=== PATIENT | male | born 1965 | race Caucasian/White ===

== ENCOUNTER 2020-10-27 22:31 | Inpatient (IN) | payer MEDICARE, OTHER ==
[~2020-10-27] VITALS: Ht 177.8 cm; Wt 92.3 kg
[~2020-10-27 22:31] MED LIST: AMOXICILLIN500 MG PO; ATIVAN1 MG PO; CIPRO500 MG PO; CLARITIN-D 12 H1 TAB PO; CLARITIN10 MG PO; FLONASE0.05 MG/AC NS; Fioricet 325 MG1 TAB PO; LEVOFLOXACIN500 MG PO; MOTRIN800 MG PO; TRAMADOL HCL50 MG PO; VICODIN 5/500 505 MG PO; VICODIN 500 MG-1 TAB PO
[2020-10-27 22:44] VITALS: BP 189/100
[2020-10-27 23:12] LABS: BASO % 0.5 % (0.0-1.0); EOS # 0.2 10*3/uL (0.0-0.4); EOS % 2.6 % (1.0-4.0); HEMATOCRIT 47.4 % (42.0-52.0); LYMPH # 2.3 10*3/uL (1.3-4.4); MEAN CELL VOLUME 86.3 fl (80.0-94.0); MEAN CORPUSCULAR HGB 28.6 pg (27.0-31.0); MEAN CORPUSCULAR HGB CONC 33.1 g/dl (33.0-37.0); MEAN PLATELET VOLUME 9.1 fl (9.6-12.3); MONO # 0.5 10*3/uL (0.1-1.0); MONO % 6.3 % (3.0-9.0); NEUT # 5.4 10*3/uL (2.3-7.9); NEUT % 63.2 % (47.0-73.0); PLATELET COUNT AUTOMATED 242 10*3/uL (130-400); RED BLOOD COUNT 5.49 10*6/uL (4.50-5.90); RED CELL DISTRI WIDTH 12.8 % (0-14.5); WHITE BLOOD COUNT 8.5 10*3/uL (4.8-10.8)
[2020-10-27 23:33] LABS: ALBUMIN 2.9 gm/dl (3.1-4.5); ALKALINE PHOSPHATASE 115 U/L (45-117); BUN 19 mg/dl (7-24); CHLORIDE 101 mmol/L (98-107); CREATININE 1.25 mg/dL (0.70-1.30); POTASSIUM 3.7 mmol/L (3.5-5.1); SGOT/AST 12 IU/L (3-35); SGPT/ALT 21 U/L (12-78); SODIUM 134 mmol/L (136-145); TOTAL PROTEIN 8.3 gm/dL (6.4-8.2)
[2020-10-28] VITALS (11 sets, daily range): BP systolic 97–159; BP diastolic 44–107
[2020-10-28 05:59] LABS: BASO % 0.5 % (0.0-1.0); EOS % 0.3 % (1.0-4.0); HEMATOCRIT 47.7 % (42.0-52.0); LYMPH # 1.5 10*3/uL (1.3-4.4); LYMPH % 18.1 % (27.0-41.0); MEAN CELL VOLUME 86.3 fl (80.0-94.0); MEAN CORPUSCULAR HGB 28.8 pg (27.0-31.0); MEAN CORPUSCULAR HGB CONC 33.3 g/dl (33.0-37.0); MEAN PLATELET VOLUME 9.7 fl (9.6-12.3); MONO # 0.2 10*3/uL (0.1-1.0); MONO % 2.3 % (3.0-9.0); NEUT # 6.3 10*3/uL (2.3-7.9); NEUT % 78.4 % (47.0-73.0); PLATELET COUNT AUTOMATED 254 10*3/uL (130-400); RED BLOOD COUNT 5.53 10*6/uL (4.50-5.90); RED CELL DISTRI WIDTH 12.9 % (0-14.5)
[2020-10-28 06:01] LABS: ALBUMIN 2.8 gm/dl (3.1-4.5); ALKALINE PHOSPHATASE 109 U/L (45-117); BUN 18 mg/dl (7-24); CHLORIDE 103 mmol/L (98-107); CHOLESTEROL 173 mg/dL (<200); CPK 24 U/L (39-308); CREATININE 1.05 mg/dL (0.70-1.30); HDL CHOLESTEROL 37 mg/dl (40-60); LDH 185 U/L (87-241); LDL CHOLESTEROL 97 mg/dL (9-159); POTASSIUM 4.5 mmol/L (3.5-5.1); SGOT/AST 15 IU/L (3-35); SGPT/ALT 19 U/L (12-78); SODIUM 133 mmol/L (136-145); TOTAL PROTEIN 8.1 gm/dL (6.4-8.2); TRIGLYCERIDES 195 mg/dl (<150); VLDL CHOLESTEROL 39 mg/dL (6-40)
[2020-10-28 06:07] LABS: THYROID STIM HORMONE (HS) 0.661 uIU/ml (0.358-4.75)
[2020-10-28 06:26] LABS: TROPONIN I 0.338 ng/ml (<0.045)
[2020-10-28 07:01] LABS: FERRITIN 943.4 ng/mL (22.0-322.0); VITAMIN D, 25-HYDROXY 16.8 ng/mL (30-100)
[2020-10-28 09:36] LABS: ABG BASE EXCESS 0.6 mmol/L (-2.0-2.0); ARTERIAL BLOOD GAS PH 7.436 (7.35-7.45)
[2020-10-29 01:00] VITALS: BP 150/92
[2020-10-29 06:21] LABS: BASO % 0.3 % (0.0-1.0); EOS # 0.1 10*3/uL (0.0-0.4); EOS % 0.9 % (1.0-4.0); HEMATOCRIT 44.3 % (42.0-52.0); LYMPH # 2.9 10*3/uL (1.3-4.4); LYMPH % 29.8 % (27.0-41.0); MEAN CELL VOLUME 88.8 fl (80.0-94.0); MEAN CORPUSCULAR HGB 28.9 pg (27.0-31.0); MEAN CORPUSCULAR HGB CONC 32.5 g/dl (33.0-37.0); MEAN PLATELET VOLUME 9.5 fl (9.6-12.3); MONO # 0.7 10*3/uL (0.1-1.0); MONO % 6.8 % (3.0-9.0); NEUT # 6.1 10*3/uL (2.3-7.9); NEUT % 61.8 % (47.0-73.0); PLATELET COUNT AUTOMATED 237 10*3/uL (130-400); RED BLOOD COUNT 4.99 10*6/uL (4.50-5.90); RED CELL DISTRI WIDTH 13.3 % (0-14.5); WHITE BLOOD COUNT 9.8 10*3/uL (4.8-10.8)
[2020-10-29 06:44] LABS: ALBUMIN 2.9 gm/dl (3.1-4.5); ALKALINE PHOSPHATASE 92 U/L (45-117); BUN 25 mg/dl (7-24); CHLORIDE 104 mmol/L (98-107); CPK 20 U/L (39-308); CREATININE 1.18 mg/dL (0.70-1.30); LDH 176 U/L (87-241); SGOT/AST 12 IU/L (3-35); SGPT/ALT 19 U/L (12-78); SODIUM 138 mmol/L (136-145); TOTAL PROTEIN 7.4 gm/dL (6.4-8.2)
[2020-10-29 07:52] LABS: ABG BASE EXCESS 1.5 mmol/L (-2.0-2.0); ARTERIAL BLOOD GAS PH 7.417 (7.35-7.45)
[2020-10-29 08:00] VITALS: BP 152/82
[2020-10-29 12:00] VITALS: BP 140/64
[2020-10-29 16:00] VITALS: BP 149/86
[2020-10-29 20:00] VITALS: BP 115/73
[2020-10-30] VITALS: BP 113/73
[2020-10-30 06:16] LABS: BASO % 0.3 % (0.0-1.0); EOS # 0.1 10*3/uL (0.0-0.4); EOS % 0.6 % (1.0-4.0); HEMATOCRIT 43.9 % (42.0-52.0); LYMPH # 3.3 10*3/uL (1.3-4.4); LYMPH % 32.7 % (27.0-41.0); MEAN CELL VOLUME 88.7 fl (80.0-94.0); MEAN CORPUSCULAR HGB 28.7 pg (27.0-31.0); MEAN CORPUSCULAR HGB CONC 32.3 g/dl (33.0-37.0); MEAN PLATELET VOLUME 9.3 fl (9.6-12.3); MONO # 0.6 10*3/uL (0.1-1.0); MONO % 5.8 % (3.0-9.0); NEUT # 6.1 10*3/uL (2.3-7.9); NEUT % 60.3 % (47.0-73.0); PLATELET COUNT AUTOMATED 250 10*3/uL (130-400); RED BLOOD COUNT 4.95 10*6/uL (4.50-5.90); RED CELL DISTRI WIDTH 13.1 % (0-14.5); WHITE BLOOD COUNT 10.1 10*3/uL (4.8-10.8)
[2020-10-30 06:21] LABS: ALBUMIN 2.9 gm/dl (3.1-4.5); BUN 26 mg/dl (7-24); CHLORIDE 100 mmol/L (98-107); CREATININE 1.14 mg/dL (0.70-1.30); LDH 183 U/L (87-241); POTASSIUM 3.8 mmol/L (3.5-5.1); SGOT/AST 16 IU/L (3-35); SGPT/ALT 22 U/L (12-78); SODIUM 136 mmol/L (136-145); TOTAL PROTEIN 7.7 gm/dL (6.4-8.2)
[2020-10-30 06:22] LABS: ALKALINE PHOSPHATASE 92 U/L (45-117); CPK 17 U/L (39-308)
[2020-10-30 07:56] LABS: ABG BASE EXCESS 4.5 mmol/L (-2.0-2.0); ARTERIAL BLOOD GAS PH 7.475 (7.35-7.45)
[2020-10-30 08:00] VITALS: BP 128/82
[2020-10-30] MEDS ORDERED: DOXYCYCLINE100 M3 PO (09:56)
== END 2020-10-30 10:30 | disposition left against medical advice (07) | DRG 871 ==
LOC: ED 22:31 → 4E 10-28 00:11 → EDHOLD 10-28 00:11 → 4E 10-28 21:20
PROVIDERS: Internal Medicine; Internal Medicine Critical Care Medicine; Student in an Organized Health Care Education/Training Program; ADMIT Emergency Medicine; ATTEND Emergency Medicine
DX: A41.89 Other specified sepsis (principal); J96.01 Acute respiratory failure with hypoxia; J18.1 Lobar pneumonia, unspecified organism; I21.4 Non-ST elevation (NSTEMI) myocardial infarction; I16.1 Hypertensive emergency; E44.0 Moderate protein-calorie malnutrition; E87.1 Hypo-osmolality and hyponatremia; D68.59 Other primary thrombophilia; B97.89 Other viral agents as the cause of diseases classified elsewhere; R65.20 Severe sepsis without septic shock; E78.5 Hyperlipidemia, unspecified; E55.9 Vitamin D deficiency, unspecified; F32.9 Major depressive disorder, single episode, unspecified; F20.9 Schizophrenia, unspecified; E88.09 Other disorders of plasma-protein metabolism, not elsewhere classified; R79.89 Other specified abnormal findings of blood chemistry; F17.210 Nicotine dependence, cigarettes, uncomplicated; F41.1 Generalized anxiety disorder; Z53.29 Procedure and treatment not carried out because of patient's decision for other reasons; E11.65 Type 2 diabetes mellitus with hyperglycemia; I10 Essential (primary) hypertension; I25.10 Atherosclerotic heart disease of native coronary artery without angina pectoris; Z20.828 Contact with and (suspected) exposure to other viral communicable diseases; E66.9 Obesity, unspecified; Z71.6 Tobacco abuse counseling; Z79.4 Long term (current) use of insulin; Z88.8 Allergy status to other drugs, medicaments and biological substances; Z91.018 Allergy to other foods; Z82.49 Family history of ischemic heart disease and other diseases of the circulatory system; Z80.8 Family history of malignant neoplasm of other organs or systems; Z90.49 Acquired absence of other specified parts of digestive tract; Z95.5 Presence of coronary angioplasty implant and graft; I25.2 Old myocardial infarction; Z91.14 Patient's other noncompliance with medication regimen; Z68.21 Body mass index [BMI] 21.0-21.9, adult

== ENCOUNTER 2021-01-05 01:27 | Emergency (ER) | payer MEDICARE, OTHER ==
[~2021-01-05] VITALS: Ht 182.8 cm; Wt 103.6 kg
[~2021-01-05 01:27] MED LIST changes: +DOXYCYCLINE100 M3 PO
[2021-01-05 02:08] LABS: BASO # 0.1 10*3/uL (0.0-0.1); BASO % 0.4 % (0.0-1.0); EOS # 0.1 10*3/uL (0.0-0.4); EOS % 0.7 % (1.0-4.0); HEMATOCRIT 48.5 % (42.0-52.0); LYMPH # 3.1 10*3/uL (1.3-4.4); LYMPH % 25.9 % (27.0-41.0); MEAN CELL VOLUME 88.2 fl (80.0-94.0); MEAN CORPUSCULAR HGB 29.8 pg (27.0-31.0); MEAN CORPUSCULAR HGB CONC 33.8 g/dl (33.0-37.0); MONO # 0.8 10*3/uL (0.1-1.0); MONO % 6.7 % (3.0-9.0); NEUT # 7.9 10*3/uL (2.3-7.9); NEUT % 66.1 % (47.0-73.0); PLATELET COUNT AUTOMATED 181 10*3/uL (130-400)
[2021-01-05 02:25] LABS: ALBUMIN 3.8 gm/dl (3.1-4.5); ALKALINE PHOSPHATASE 104 U/L (45-117); BUN 13 mg/dl (7-24); CHLORIDE 102 mmol/L (98-107); CPK 63 U/L (39-308); CREATININE 1.12 mg/dL (0.70-1.30); POTASSIUM 3.3 mmol/L (3.5-5.1); SGOT/AST 19 IU/L (3-35); SGPT/ALT 24 U/L (12-78); SODIUM 135 mmol/L (136-145); TOTAL PROTEIN 8.1 gm/dL (6.4-8.2)
[2021-01-05 02:27] LABS: CKMB 1.2 ng/ml (0.5-3.6)
[2021-01-05 02:29] LABS: TROPONIN I 0.295 ng/ml (<0.045)
[2021-01-05 02:31] LABS: ACT PARTIAL THROMBO TIME 25.8 SECONDS (20.0-32.1)
[2021-01-05 02:47] LABS: BILIRUBIN Negative (Negative); BLOOD 1+ (Negative); CLARITY Clear (Clear); COLOR Yellow (Yellow); GLUCOSE Negative (Negative); KETONE 1+ (Negative); LEUKO ESTERASE Negative (Negative); NITRITE Negative (Negative); SPECIFIC GRAVITY 1.015 (1.001-1.030)
[2021-01-05 03:02] LABS: EPITHELIAL CELLS 0-2
[2021-01-05 03:03] LABS: BACTERIA 1+; HYALINE CAST 0-2
[2021-01-05 06:38] VITALS: BP 126/58
== END 2021-01-05 10:18 | disposition left against medical advice (07) ==
LOC: ED 01:27
PROVIDERS: Emergency Medicine
DX: R47.1 Dysarthria and anarthria (principal); R29.810 Facial weakness; R74.8 Abnormal levels of other serum enzymes; E11.9 Type 2 diabetes mellitus without complications; I10 Essential (primary) hypertension; I25.2 Old myocardial infarction; F32.9 Major depressive disorder, single episode, unspecified; F41.9 Anxiety disorder, unspecified; F20.9 Schizophrenia, unspecified; J44.9 Chronic obstructive pulmonary disease, unspecified; E78.00 Pure hypercholesterolemia, unspecified; F17.200 Nicotine dependence, unspecified, uncomplicated; Z88.8 Allergy status to other drugs, medicaments and biological substances; Z91.018 Allergy to other foods; Z79.2 Long term (current) use of antibiotics; Z95.5 Presence of coronary angioplasty implant and graft

== ENCOUNTER 2021-04-18 04:02 | Emergency (ER) | payer MEDICARE, OTHER ==
[~2021-04-18] VITALS: Ht 182.8 cm; Wt 93.0 kg
[2021-04-18 04:41] VITALS: BP 174/111
== END 2021-04-18 05:16 | disposition left against medical advice (07) ==
LOC: ED 04:02
DX: J02.9 Acute pharyngitis, unspecified (principal); F41.9 Anxiety disorder, unspecified; F32.9 Major depressive disorder, single episode, unspecified; E11.9 Type 2 diabetes mellitus without complications; I25.2 Old myocardial infarction; E78.5 Hyperlipidemia, unspecified; Z95.818 Presence of other cardiac implants and grafts; Z90.49 Acquired absence of other specified parts of digestive tract; Z88.8 Allergy status to other drugs, medicaments and biological substances; Z79.899 Other long term (current) drug therapy; Z98.890 Other specified postprocedural states

== ENCOUNTER 2021-06-15 23:54 | Emergency (ER) | payer MEDICARE, OTHER ==
[~2021-06-15] VITALS: Ht 185.4 cm; Wt 95.3 kg
[2021-06-16 00:02] VITALS: BP 154/79
[2021-06-16 01:17] LABS: BASO % 0.3 % (0.0-1.0); EOS # 0.3 10*3/uL (0.0-0.4); EOS % 2.9 % (1.0-4.0); LYMPH # 2.4 10*3/uL (1.3-4.4); LYMPH % 20.2 % (27.0-41.0); MEAN CELL VOLUME 90.5 fl (80.0-94.0); MEAN CORPUSCULAR HGB 29.4 pg (27.0-31.0); MEAN CORPUSCULAR HGB CONC 32.4 g/dl (33.0-37.0); MEAN PLATELET VOLUME 9.4 fl (9.6-12.3); MONO # 0.7 10*3/uL (0.1-1.0); MONO % 5.8 % (3.0-9.0); NEUT # 8.1 10*3/uL (2.3-7.9); NEUT % 69.4 % (47.0-73.0); NUCLEATED RED BLOOD CELL 0.2 % (0.0-0.0); PLATELET COUNT AUTOMATED 203 10*3/uL (130-400); RED BLOOD COUNT 4.53 10*6/uL (4.50-5.90); RED CELL DISTRI WIDTH 14.4 % (0-14.5); WHITE BLOOD COUNT 11.6 10*3/uL (4.8-10.8)
[2021-06-16 01:33] LABS: ALBUMIN 2.7 gm/dl (3.1-4.5); ALKALINE PHOSPHATASE 77 U/L (45-117); BUN 25 mg/dl (7-24); CHLORIDE 105 mmol/L (98-107); CREATININE 1.34 mg/dL (0.70-1.30); POTASSIUM 3.9 mmol/L (3.5-5.1); SGOT/AST 14 IU/L (3-35); SGPT/ALT 20 U/L (12-78); SODIUM 134 mmol/L (136-145); TOTAL PROTEIN 6.6 gm/dL (6.4-8.2)
== END 2021-06-16 02:34 | disposition home or self-care (01) ==
LOC: ED 23:54
PROVIDERS: Emergency Medicine
DX: F41.9 Anxiety disorder, unspecified (principal); F17.200 Nicotine dependence, unspecified, uncomplicated; Z88.8 Allergy status to other drugs, medicaments and biological substances; Z91.018 Allergy to other foods; Z79.2 Long term (current) use of antibiotics; Z95.5 Presence of coronary angioplasty implant and graft; Z98.890 Other specified postprocedural states

== ENCOUNTER 2021-07-01 17:11 | Inpatient (IN) | payer MEDICARE, OTHER ==
[~2021-07-01] VITALS: Ht 185.4 cm; Wt 89.4 kg
[2021-07-01 17:19] VITALS: BP 150/94
[2021-07-01 17:27] LABS: BASO % 0.4 % (0.0-1.0); EOS # 0.3 10*3/uL (0.0-0.4); EOS % 3.2 % (1.0-4.0); HEMATOCRIT 45.3 % (42.0-52.0); LYMPH # 2.6 10*3/uL (1.3-4.4); LYMPH % 24.9 % (27.0-41.0); MEAN CELL VOLUME 88.5 fl (80.0-94.0); MEAN CORPUSCULAR HGB 29.1 pg (27.0-31.0); MEAN CORPUSCULAR HGB CONC 32.9 g/dl (33.0-37.0); MEAN PLATELET VOLUME 8.7 fl (9.6-12.3); MONO # 0.7 10*3/uL (0.1-1.0); MONO % 7.1 % (3.0-9.0); NEUT # 6.6 10*3/uL (2.3-7.9); NEUT % 64.2 % (47.0-73.0); PLATELET COUNT AUTOMATED 225 10*3/uL (130-400); RED BLOOD COUNT 5.12 10*6/uL (4.50-5.90); RED CELL DISTRI WIDTH 13.3 % (0-14.5); WHITE BLOOD COUNT 10.3 10*3/uL (4.8-10.8)
[2021-07-01 18:00] LABS: ALBUMIN 3.5 gm/dl (3.1-4.5); CREATININE 1.48 mg/dL (0.70-1.30); POTASSIUM 3.9 mmol/L (3.5-5.1); TOTAL PROTEIN 8.1 gm/dL (6.4-8.2)
[2021-07-01 18:15] VITALS: BP 120/81
[2021-07-01 18:16] LABS: TROPONIN I 0.985 ng/ml (<0.045)
[2021-07-01 21:01] VITALS: BP 136/85
[2021-07-02] VITALS: BP 113/67
[2021-07-02 01:00] VITALS: BP 113/67
[2021-07-02 02:16] VITALS: BP 146/84
[2021-07-02 05:20] VITALS: BP 144/82
[2021-07-02 07:29] VITALS: BP 134/72
[2021-07-02] MEDS ORDERED: SERTRALINE HYDR50 MG PO (10:44)
[2021-07-02] MEDS ORDERED: ASPIRIN81 M1 PO (10:45)
[2021-07-02] MEDS ORDERED: IRON325 M1 PO (10:45)
[2021-07-02] MEDS ORDERED: TOPROL XL50 M1 PO (10:46)
[2021-07-02] MEDS ORDERED: LASIX20 MG PO (10:47)
[2021-07-02] MEDS ORDERED: PLAVIX75 M1 PO (10:47)
[2021-07-02] MEDS ORDERED: NATURE'S BLEND F1 MG PO (10:47)
[2021-07-02] MEDS ORDERED: ZESTRIL10 MG PO (10:47)
== END 2021-07-02 12:00 | disposition home or self-care (01) | DRG 313 ==
LOC: ED 17:11 → EDHOLD 22:09
PROVIDERS: Emergency Medicine; ADMIT Internal Medicine; ATTEND Internal Medicine
DX: R07.89 Other chest pain (principal); R20.0 Anesthesia of skin; I25.10 Atherosclerotic heart disease of native coronary artery without angina pectoris; F17.200 Nicotine dependence, unspecified, uncomplicated; I25.9 Chronic ischemic heart disease, unspecified; R77.8 Other specified abnormalities of plasma proteins; Z71.6 Tobacco abuse counseling; I25.5 Ischemic cardiomyopathy; Z90.49 Acquired absence of other specified parts of digestive tract; Z95.5 Presence of coronary angioplasty implant and graft; Z88.8 Allergy status to other drugs, medicaments and biological substances; Z82.49 Family history of ischemic heart disease and other diseases of the circulatory system; Z79.82 Long term (current) use of aspirin; Z86.73 Personal history of transient ischemic attack (TIA), and cerebral infarction without residual deficits; N18.30 Chronic kidney disease, stage 3 unspecified

== ENCOUNTER 2022-03-09 14:41 | Emergency (ER) | payer MEDICARE, OTHER ==
[~2022-03-09] VITALS: Ht 182.8 cm; Wt 90.7 kg
[~2022-03-09 14:41] MED LIST changes: +ASPIRIN81 M1 PO; +IRON325 M1 PO; +LASIX20 MG PO; +NATURE'S BLEND F1 MG PO; +PLAVIX75 M1 PO; +SERTRALINE HYDR50 MG PO; +TOPROL XL50 M1 PO; +ZESTRIL10 MG PO
[2022-03-09 15:25] LABS: BASO % 0.4 % (0.0-1.0); EOS # 0.1 10*3/uL (0.0-0.4); EOS % 0.8 % (1.0-4.0); HEMATOCRIT 52.1 % (42.0-52.0); LYMPH % 28.9 % (27.0-41.0); MEAN CELL VOLUME 86.8 fl (80.0-94.0); MEAN CORPUSCULAR HGB 29.3 pg (27.0-31.0); MEAN CORPUSCULAR HGB CONC 33.8 g/dl (33.0-37.0); MEAN PLATELET VOLUME 9.2 fl (9.6-12.3); MONO # 0.7 10*3/uL (0.1-1.0); MONO % 6.5 % (3.0-9.0); NEUT # 6.6 10*3/uL (2.3-7.9); NEUT % 63.1 % (47.0-73.0); PLATELET COUNT AUTOMATED 181 10*3/uL (130-400); RED CELL DISTRI WIDTH 14.7 % (0-14.5); WHITE BLOOD COUNT 10.5 10*3/uL (4.8-10.8)
[2022-03-09 15:36] LABS: ACT PARTIAL THROMBO TIME 26.7 SECONDS (20.0-32.1)
[2022-03-09 15:45] LABS: ALKALINE PHOSPHATASE 129 U/L (45-117); BUN 23 mg/dl (7-24); CHLORIDE 107 mmol/L (98-107); LIPASE 164 U/L (73-393); POTASSIUM 4.4 mmol/L (3.5-5.1); SODIUM 134 mmol/L (136-145)
[2022-03-09 15:49] LABS: CREATININE 1.41 mg/dL (0.70-1.30); SGOT/AST 23 IU/L (3-35); SGPT/ALT 26 U/L (12-78)
[2022-03-09 16:50] VITALS: BP 141/91
== END 2022-03-09 17:46 | disposition left against medical advice (07) ==
LOC: ED 14:41
PROVIDERS: Emergency Medicine
DX: R26.81 Unsteadiness on feet (principal); R29.810 Facial weakness; Z79.899 Other long term (current) drug therapy; Z98.2 Presence of cerebrospinal fluid drainage device; Z98.890 Other specified postprocedural states; Z87.891 Personal history of nicotine dependence; Z90.49 Acquired absence of other specified parts of digestive tract

== ENCOUNTER 2022-06-05 10:41 | Inpatient (IN) | payer MEDICARE, OTHER ==
[~2022-06-05] VITALS: Ht 185.4 cm; Wt 93.1 kg
[2022-06-05] VITALS (8 sets, daily range): BP systolic 105–162; BP diastolic 52–89
[2022-06-05 11:21] LABS: BASO # 0.1 10*3/uL (0.0-0.1); BASO % 0.5 % (0.0-1.0); EOS # 0.1 10*3/uL (0.0-0.4); EOS % 1.3 % (1.0-4.0); HEMATOCRIT 50.8 % (42.0-52.0); LYMPH # 2.9 10*3/uL (1.3-4.4); LYMPH % 29.7 % (27.0-41.0); MEAN CELL VOLUME 87.3 fl (80.0-94.0); MEAN CORPUSCULAR HGB 29.7 pg (27.0-31.0); MEAN CORPUSCULAR HGB CONC 34.1 g/dl (33.0-37.0); MEAN PLATELET VOLUME 9.7 fl (9.6-12.3); MONO # 0.7 10*3/uL (0.1-1.0); MONO % 6.8 % (3.0-9.0); NEUT # 5.9 10*3/uL (2.3-7.9); NEUT % 61.5 % (47.0-73.0); PLATELET COUNT AUTOMATED 143 10*3/uL (130-400); RED BLOOD COUNT 5.82 10*6/uL (4.50-5.90); RED CELL DISTRI WIDTH 14.5 % (0-14.5); WHITE BLOOD COUNT 9.6 10*3/uL (4.8-10.8)
[2022-06-05 11:34] LABS: ACT PARTIAL THROMBO TIME 26.8 SECONDS (20.0-32.1); INTERNATIONAL NORM RATIO 0.9 (2.0-3.5)
[2022-06-05 11:36] LABS: ALKALINE PHOSPHATASE 111 U/L (45-117); BUN 20 mg/dl (7-24); CHLORIDE 108 mmol/L (98-107); CREATININE 1.34 mg/dL (0.70-1.30); SGOT/AST 18 IU/L (3-35); SGPT/ALT 22 U/L (12-78); SODIUM 136 mmol/L (136-145); TOTAL PROTEIN 7.4 gm/dL (6.4-8.2)
[2022-06-05] MEDS ORDERED: NEURONTIN300 MG PO (17:02)
[2022-06-05] MEDS ORDERED: PROVENTIL HFA6.7 GM INH (17:03)
[2022-06-05] MEDS ORDERED: ANORO ELLIPTA1 EACH INH (17:04)
[2022-06-05] MEDS ORDERED: METFORMIN HYDR500 MG PO (17:05)
[2022-06-05] MEDS ORDERED: PRAVASTATIN SOD20 MG PO (17:06)
== END 2022-06-05 19:12 | disposition left against medical advice (07) | DRG 281 ==
LOC: ED 10:41 → EDHOLD 12:03 → 4E 12:51
PROVIDERS: Family Medicine; ADMIT Emergency Medicine; ATTEND Emergency Medicine
DX: I21.4 Non-ST elevation (NSTEMI) myocardial infarction (principal); I16.1 Hypertensive emergency; I25.10 Atherosclerotic heart disease of native coronary artery without angina pectoris; I10 Essential (primary) hypertension; F41.9 Anxiety disorder, unspecified; F32.9 Major depressive disorder, single episode, unspecified; E78.5 Hyperlipidemia, unspecified; F17.210 Nicotine dependence, cigarettes, uncomplicated; E11.59 Type 2 diabetes mellitus with other circulatory complications; E11.65 Type 2 diabetes mellitus with hyperglycemia; E55.9 Vitamin D deficiency, unspecified; F20.9 Schizophrenia, unspecified; Z86.73 Personal history of transient ischemic attack (TIA), and cerebral infarction without residual deficits; Z88.8 Allergy status to other drugs, medicaments and biological substances; Z95.5 Presence of coronary angioplasty implant and graft; Z90.49 Acquired absence of other specified parts of digestive tract; Z95.1 Presence of aortocoronary bypass graft; Z82.49 Family history of ischemic heart disease and other diseases of the circulatory system; I25.2 Old myocardial infarction; Z53.29 Procedure and treatment not carried out because of patient's decision for other reasons

== ENCOUNTER 2023-01-11 17:37 | Emergency (ER) | payer MEDICARE, OTHER ==
[~2023-01-11] VITALS: Ht 185.4 cm; Wt 96.6 kg
[~2023-01-11 17:37] MED LIST changes: +ANORO ELLIPTA1 EACH INH; +METFORMIN HYDR500 MG PO; +NEURONTIN300 MG PO; +PRAVASTATIN SOD20 MG PO; +PROVENTIL HFA6.7 GM INH
[2023-01-11 17:54] VITALS: BP 181/92
[2023-01-11 18:16] LABS: BASO # 0.1 10*3/uL (0.0-0.1); BASO % 0.5 % (0.0-1.0); EOS # 0.1 10*3/uL (0.0-0.4); EOS % 0.6 % (1.0-4.0); HEMATOCRIT 50.5 % (42.0-52.0); LYMPH # 2.7 10*3/uL (1.3-4.4); LYMPH % 27.9 % (27.0-41.0); MEAN CELL VOLUME 88.3 fl (80.0-94.0); MEAN CORPUSCULAR HGB 30.1 pg (27.0-31.0); MEAN CORPUSCULAR HGB CONC 34.1 g/dl (33.0-37.0); MEAN PLATELET VOLUME 9.1 fl (9.6-12.3); MONO # 0.6 10*3/uL (0.1-1.0); MONO % 6.4 % (3.0-9.0); NEUT # 6.1 10*3/uL (2.3-7.9); NEUT % 64.4 % (47.0-73.0); PLATELET COUNT AUTOMATED 174 10*3/uL (130-400); RED BLOOD COUNT 5.72 10*6/uL (4.50-5.90); RED CELL DISTRI WIDTH 13.7 % (0-14.5); WHITE BLOOD COUNT 9.5 10*3/uL (4.8-10.8)
[2023-01-11 18:34] LABS: ALKALINE PHOSPHATASE 103 U/L (46-116); BUN 26 mg/dl (9-23); CHLORIDE 98 mmol/L (98-107); POTASSIUM 4.5 mmol/L (3.4-5.1); SGPT/ALT 21 U/L (10-49); TOTAL PROTEIN 7.1 gm/dL (6.0-8.0)
== END 2023-01-11 20:12 | disposition home or self-care (01) ==
LOC: ED 17:37
PROVIDERS: Emergency Medicine
DX: J44.1 Chronic obstructive pulmonary disease with (acute) exacerbation (principal); R77.8 Other specified abnormalities of plasma proteins; N17.9 Acute kidney failure, unspecified; R73.9 Hyperglycemia, unspecified; E87.1 Hypo-osmolality and hyponatremia; F41.9 Anxiety disorder, unspecified; F32.A Depression, unspecified; I34.0 Nonrheumatic mitral (valve) insufficiency; I10 Essential (primary) hypertension; Z88.8 Allergy status to other drugs, medicaments and biological substances; Z90.49 Acquired absence of other specified parts of digestive tract; Z98.890 Other specified postprocedural states; F17.200 Nicotine dependence, unspecified, uncomplicated; Z88.6 Allergy status to analgesic agent

== ENCOUNTER 2023-01-14 12:31 | Emergency (ER) | payer MEDICARE, OTHER ==
[~2023-01-14] VITALS: Ht 185.4 cm; Wt 96.2 kg
[2023-01-14 14:05] LABS: BASO % 0.5 % (0.0-1.0); EOS # 0.1 10*3/uL (0.0-0.4); EOS % 0.9 % (1.0-4.0); HEMATOCRIT 49.1 % (42.0-52.0); LYMPH # 2.2 10*3/uL (1.3-4.4); LYMPH % 25.4 % (27.0-41.0); MEAN CELL VOLUME 88.8 fl (80.0-94.0); MEAN CORPUSCULAR HGB CONC 33.8 g/dl (33.0-37.0); MEAN PLATELET VOLUME 9.1 fl (9.6-12.3); MONO # 0.6 10*3/uL (0.1-1.0); MONO % 7.2 % (3.0-9.0); NEUT # 5.5 10*3/uL (2.3-7.9); NEUT % 65.3 % (47.0-73.0); PLATELET COUNT AUTOMATED 163 10*3/uL (130-400); RED BLOOD COUNT 5.53 10*6/uL (4.50-5.90); RED CELL DISTRI WIDTH 13.7 % (0-14.5); WHITE BLOOD COUNT 8.5 10*3/uL (4.8-10.8)
[2023-01-14 14:08] LABS: BILIRUBIN Negative (Negative); BLOOD Negative (Negative); CLARITY Clear (Clear); COLOR Yellow (Yellow); GLUCOSE 2+ (Negative); KETONE Negative (Negative); LEUKO ESTERASE Negative (Negative); NITRITE Negative (Negative); PH 5.5 (4.5-8.0); UROBILINOGEN 0.2 E.U./dl (0.0-1.0)
[2023-01-14 14:14] LABS: ALKALINE PHOSPHATASE 98 U/L (46-116); BUN 15 mg/dl (9-23); CHLORIDE 100 mmol/L (98-107); LIPASE 48 U/L (12-53); POTASSIUM 4.1 mmol/L (3.4-5.1); SGPT/ALT 15 U/L (10-49); TOTAL PROTEIN 6.9 gm/dL (6.0-8.0)
[2023-01-14 14:17] VITALS: BP 148/82
[2023-01-14 14:51] LABS: RBC 0-2 rbc/hpf (0-2); WBC 0-2 wbc/hpf (0-5)
[2023-01-14 15:02] LABS: ACT PARTIAL THROMBO TIME 27.5 SECONDS (20.0-32.1); INTERNATIONAL NORM RATIO 0.9 (2.0-3.5)
== END 2023-01-14 14:47 | disposition left against medical advice (07) ==
LOC: ED 12:31
PROVIDERS: Emergency Medicine
DX: R53.1 Weakness (principal); R51.9 Headache, unspecified; Z88.8 Allergy status to other drugs, medicaments and biological substances; Z79.899 Other long term (current) drug therapy; Z79.82 Long term (current) use of aspirin; Z98.890 Other specified postprocedural states; Z87.891 Personal history of nicotine dependence; Z90.49 Acquired absence of other specified parts of digestive tract

== ENCOUNTER → 2023-09-27 | Outpatient (CLI) | payer MEDICARE, OTHER ==
[~2023-09-27] MED LIST changes: +AMITRIPTYLINE H10 M1 PO
== END | disposition home or self-care (01) ==
LOC: ORTHO 00:45
PROVIDERS: ATTEND Orthopaedic Surgery
DX: M25.561 Pain in right knee (principal); M25.571 Pain in right ankle and joints of right foot

== ENCOUNTER → 2024-01-21 | Outpatient (CLI) | payer MEDICARE, OTHER | END | disposition home or self-care (01) | LOC: MRI 02:44 | PROVIDERS: ATTEND Orthopaedic Surgery | DX: M67.461 Ganglion, right knee (principal); M79.89 Other specified soft tissue disorders ==

== ENCOUNTER → 2024-02-01 | Day surgery (SDC) | payer MEDICARE, OTHER ==
[2024-01-31 15:01] VITALS: BP 156/89
[2024-01-31 15:47] LABS: BUN 13 mg/dl (9-23); CHLORIDE 103 mmol/L (98-107); POTASSIUM 4.2 mmol/L (3.4-5.1)
[~2024-02-01] VITALS: Ht 185.4 cm; Wt 83.5 kg
[~2024-02-01] MED LIST changes: +Bupivacaine Hydrochloride/Ep 10 ML VIAL IM ONE; +ELIQUIS5 M1 PO; +Ketamine Hydrochloride 50 MG/5 ML SYRINGE IV ONE; +Midazolam Hydrochloride 2 MG/2 ML VIAL IV ONE; +PROPOFOL 200 MG/20 ML VIAL IV ONE; +SODIUM CHLORIDE 0.9% 1,000 ML IV ONE; +ceFAZolin sodium/sodium chlor 20 ML IV ONE
[2024-02-01 07:22] VITALS: BP 154/96
[2024-02-01 08:25] VITALS: BP 166/82
[2024-02-01 08:36] VITALS: BP 163/80
[2024-02-01 08:50] VITALS: BP 167/83
[2024-02-01 09:05] VITALS: BP 166/82
== END | disposition home or self-care (01) ==
LOC: SDC 01-31 14:00
PROVIDERS: ATTEND Orthopaedic Surgery
DX: M67.461 Ganglion, right knee (principal); M85.68 Other cyst of bone, other site; I10 Essential (primary) hypertension; J44.9 Chronic obstructive pulmonary disease, unspecified; E11.9 Type 2 diabetes mellitus without complications; I25.2 Old myocardial infarction; I25.10 Atherosclerotic heart disease of native coronary artery without angina pectoris; F41.9 Anxiety disorder, unspecified; E78.00 Pure hypercholesterolemia, unspecified; F17.210 Nicotine dependence, cigarettes, uncomplicated; Z86.010 Personal history of colon polyps; Z86.73 Personal history of transient ischemic attack (TIA), and cerebral infarction without residual deficits; Z98.890 Other specified postprocedural states; Z79.82 Long term (current) use of aspirin; Z79.84 Long term (current) use of oral hypoglycemic drugs; Z79.899 Other long term (current) drug therapy; Z88.8 Allergy status to other drugs, medicaments and biological substances; Z82.49 Family history of ischemic heart disease and other diseases of the circulatory system